=== PATIENT | male | born 1995 | race Caucasian/White ===

== ENCOUNTER 2024-01-17 14:14 | Outpatient (OUT) | payer SELFPAY ==
--- NOTE | 2024-01-17 14:30 | CA_ITS ---
Patient Name: BOBO MERRITT MR#: [id number] : 1995 Exam Date: 01/17/2024 Ordering Doctor: DR. Jerod Nicole ECHOCARDIOGRAM REPORT PROCEDURE: CA ECHO DOPPLER COMPLETE INDICATIONS: Murmur COMPARISON: None. DESCRIPTION: COMPLETE ECHOCARDIOGRAM Real-time transthoracic echocardiography with 2D, M-mode, spectral and color flow Doppler performed. QUALITY: Technical quality was good. LEFT VENTRICLE: Normal chamber size. Normal left ventricular wall thickness. LV EF: Global left ventricular systolic function is normal. Calculated left ventricular ejection fraction is 68%. No significant wall motion abnormalities. DIASTOLIC: Normal diastolic function. ATRIAL SEPTUM: Inadequately seen. LEFT ATRIUM: Normal chamber size. RIGHT ATRIUM: Normal chamber size. RIGHT VENTRICLE: Normal chamber size. Normal right ventricular systolic function. TRICUSPID VALVE: Normal mobility and thickness. No stenosis with trivial regurgitation. No evidence of pulmonary hypertension. RVSP 19mmHg MITRAL VALVE: Normal mobility and thickness. No evidence of mitral valve stenosis. There is no mitral annular calcification. Trivial mitral regurgitation. AORTIC VALVE: Normal trileaflet appearance. No visible sclerosis. Normal leaflet mobility. No evidence of aortic valve stenosis. No aortic regurgitation. AORTIC ROOT: Normal diameter and appearance. PULMONIC VALVE: Normal thickness and mobility. No stenosis. Trivial regurgitation. PERICARDIUM: No evidence of pericardial effusion. IVC: Collapses with inspirations. CONCLUSION: 1. Global left ventricular systolic function is normal; visually estimated ejection fraction is 60 to 65% 2. Normal right ventricular size and systolic function 3. Normal diastolic function 4. The left atrium is normal in size 5. No significant valvular abnormalities Adult Echocardiography Procedure Report Left Ventricle LVEDD (3.7 - 5.6 cm): 4.05 cm LVESD (2.2 - 4.0 cm): 2.68 cm LVIVS thickness (0.6 - 1.2 cm): 0.78 cm LVPW thickness (0.5 - 1.0 cm): 0.92 cm e': 0.17 m/s E - e': 3.92 LVOT Max Gradient: 3.81 mm[Hg] LVOT Area (cm2): 0.98 m/s Peak Velocity (LVOT): 0.98 m/s Mean Velocity (LVOT): 0.67 m/s LVOT Diameter 1.94 cm Left Ventricular Ejection Fraction: 67.52 % Left Atrium LA Volume Index (2D A2C): 17.94 ml/m2 Left Atrium Systolic Dimension: 2.52 cm Mitral Valve MV E to A Ratio: 1.37 Mitral Valve A-Wave Peak Velocity: 0.48 m/s Mitral Valve E-Wave Peak Velocity: 0.66 m/s Right Ventricle RV Internal Diastolic Dimension: 3.61 cm Aorta AO Root Diam: 3.10 cm Ascending Ao Diam: 2.68 cm Aortic Valve AoV Area (Peak Derrick): 2.33 cm2, 2.33 cm2 AoV Area (VTI): 2.44 cm2, 2.45 cm2 Peak Velocity(Antegrade Flow): 1.24 m/s, 1.24 m/s Peak Gradient(Antegrade Flow): 6.20 mm[Hg], 6.20 mm[Hg] Mean Velocity(Antegrade Flow): 0.86 m/s, 0.86 m/s Mean Gradient(Antegrade Flow): 3.38 mm[Hg], 3.36 mm[Hg] Velocity Time Integral: 23.61 cm, 23.67 cm Tricuspid Valve Peak Velocity (Regurgitant Flow): 2.01 m/s Pulmonic Valve Mean Gradient: 1.97 mm[Hg] Mean Velocity: 0.66 m/s Peak Velocity: 1.05 m/s, 0.96 m/s Peak Gradient: 4.40 mm[Hg], 3.68 mm[Hg] Right Atrium Right Atrium Systolic Pressure: 25.93 ml, 25.93 ml Dictated by: Celeste Ramachandran M.D. on 01/18/2024 at 15:10 Approved by: Celeste Ramachandran M.D. on 01/18/2024 at 15:12
--- NOTE | 2024-01-17 14:30 | ECG_ITS ---
[facility] Test Date: 2024-01-17 Pat Name: BOBO MERRITT Department: Room: - Gender: Male [employer]: : 1995 Requested By: CHASITY CONTRERAS Order Number: [id number] Reading MD: MOO OZUNA Measurements Intervals Hertel Rate: 84 P: 67 ME: 154 QRS: 74 QRSD: 83 T: 52 QT: 351 QTc: 415 Interpretive Statements SINUS RHYTHM No previous ECG available for comparison Electronically Signed On 01-17-2024 22:26:21 EDT by MOO OZUNA
== END 2024-01-17 14:15 | disposition home or self-care (01) ==
LOC: CARD 14:18
PROVIDERS: PCP Family Medicine; Visit Provider Chiropractor
DX: R01.1 Cardiac murmur, unspecified (principal)
CPT/HCPCS: 93005; 93306